=== PATIENT | female | born 1985 | race American Indian/Alaskan Native ===

== ENCOUNTER 2017-03-16 23:42 | Emergency (ER) | payer MEDICAID ==
[2017-03-16 23:42] VITALS: BMI 41.5
[2017-03-16 23:47] VITALS: RESP 20; TEMP 97.6
[2017-03-17] MEDS ORDERED: Oxycodone/Acetaminophen 5/325 mg Tab ONE (01:19)
--- NOTE | 2017-03-17 01:24 | C.PDOC ---
History Of Present Illness Patient is a 31 year old female who presents to the ER with a complaint of left shoulder pain after falling and hitting herself on a table. Patient states she has pain with movement and denies any LOC or any other injury. Time Seen by Provider: 03/17/17 00:21 Chief Complaint (Nursing): Upper Extremity Problem/Injury History Per: Patient History/Exam Limitations: no limitations Onset/Duration Of Symptoms: Hrs Current Symptoms Are (Timing): Still Present Exacerbating Factor(s): Movement Recent travel outside of the [place]: No Past Medical History Reviewed: Historical Data, Nursing Documentation, Vital Signs Vital Signs: Last Vital Signs Temp 97.6 F 03/16/17 23:43 Pulse 68 03/17/17 01:46 Resp 20 03/17/17 01:46 BP 127/69 03/17/17 01:46 Pulse Ox 98 03/17/17 03:06 - Medical History PMH: Anxiety Surgical History: Cholecystectomy - [facility] Procedures OTHER SKIN & SUBQ I D (05/08/14) Family History: States: Unknown Family Hx - Social History Hx Tobacco Use: No Hx Alcohol Use: No Hx Substance Use: No - Immunization History Hx Tetanus Toxoid Vaccination: No Hx Influenza Vaccination: No Hx Pneumococcal Vaccination: No Review Of Systems Musculoskeletal: Positive for: Shoulder Pain (Left). Negative for: Neck Pain, Back Pain Physical Exam - Physical Exam Appears: Well, Non-toxic Skin: Normal Color, Warm, Dry Head: Atraumatic, Normacephalic Eye(s): bilateral: Normal Inspection, PERRL Oral Mucosa: Moist Extremity: Normal ROM (Minimal pain with movement), No Tenderness (anterior left shoulder), No Capillary Refill, No Deformity, No Swelling, No Other ( Ecchymosis) Extremity: Bilateral: Normal Color And Temperature Pulses: Left Radial: Normal, Right Radial: Normal Neurological/Psych: Oriented x3, Normal Speech, Normal Cognition, Normal Motor, Normal Sensation Gait: Steady ED Course And Treatment O2 Sat by Pulse Oximetry: 98 (Room air) Pulse Ox Interpretation: Normal Progress Note: Left shoulder x-ray ordered, results showed no abnormalities. Patient refused motrin and requested percocet, 1 percocet administered. Patient' s shoulder placed in sling for support, instructed to follow up with PMD. Disposition Counseled Patient/Family Regarding: Diagnosis, Need For Followup, Rx Given - Disposition Referrals: Luis,Camilo L, MD [Medical Doctor] - Disposition: HOME/ ROUTINE Disposition Time: 01:20 Condition: STABLE Additional Instructions: Please follow up with PMD Take meds as directed Return to ER if worse Instructions: Shoulder Sprain (ED) - Clinical Impression Clinical Impression: Shoulder sprain - Scribe Statement The provider has reviewed the documentation as recorded by the Scribe Elder Gonzalez All medical record entries made by the Rachelibelizabeth were at my direction and personally dictated by me. I have reviewed the chart and agree that the record accurately reflects my personal performance of the history, physical exam, medical decision making, and the department course for this patient. I have also personally directed, reviewed, and agree with the discharge instructions and disposition.
[2017-03-17] MEDS ORDERED: Oxycodone/Acetaminophen 5/325 mg Tab PO STA (01:41)
[2017-03-17 01:48] VITALS: BP 127/69; PULSE 68
[2017-03-17 03:03] VITALS: O2SAT 98
--- NOTE | 2017-03-17 08:29 | RAD ---
PROCEDURE: Radiographs of the Left Shoulder HISTORY: pain COMPARISON: None available. FINDINGS: BONES: No acute displaced fracture. The distal clavicle and underlying ribs appear intact. JOINTS: No acute dislocation. SOFT TISSUES: Soft tissues appear unremarkable. No evidence of radiopaque foreign body. IMPRESSION: No acute displaced fracture or dislocation evident. If symptoms persist or if there is continued clinical concern, x-ray follow-up in 7-10 days should be considered.
== END 2017-03-17 01:46 | disposition home or self-care (01) ==
LOC: C.ER 23:42
DX: S43.402A Unspecified sprain of left shoulder joint, initial encounter (principal); W18.39XA Other fall on same level, initial encounter

== ENCOUNTER 2017-04-24 09:57 | Emergency (ER) | payer MEDICAID ==
[2017-04-24 09:57] VITALS: BMI 41.5
--- NOTE | 2017-04-24 10:14 | C.PDOC ---
History Of Present Illness 31 y/o female presents to ED with complaints of "sharp" chest pain, abdominal pain for "1 week or so" and nasal congestion. Chest pain is constant and also "comes and goes" with worsening when lying down or sitting up. Patient describes abdominal pain as "bloating" worse in the upper abdominal area. Patient denies urinary sympt, fever, chills, N/V/D, Diaphoresis SOB cough or rash Time Seen by Provider: 04/24/17 10:12 Chief Complaint (Nursing): Chest Pain History Per: Patient History/Exam Limitations: no limitations Onset/Duration Of Symptoms: Days Current Symptoms Are (Timing): Still Present Quality: Sharp Associated Symptoms: denies: Diaphoresis Past Medical History Reviewed: Historical Data, Nursing Documentation, Vital Signs Vital Signs: Last Vital Signs Temp 97.5 F L 04/24/17 15:11 Pulse 74 04/24/17 15:11 Resp 16 04/24/17 15:11 BP 109/71 04/24/17 15:11 Pulse Ox 100 04/24/17 15:16 - Medical History PMH: Anxiety Surgical History: Cholecystectomy - [facility] Procedures OTHER SKIN & SUBQ I D (05/08/14) Family History: States: Unknown Family Hx - Social History Hx Tobacco Use: No Hx Alcohol Use: No Hx Substance Use: No Review Of Systems Constitutional: Negative for: Fever, Chills Cardiovascular: Negative for: Chest Pain Gastrointestinal: Negative for: Nausea, Vomiting, Diarrhea Neurological: Negative for: Weakness, Headache Physical Exam - Physical Exam Appears: Non-toxic, No Acute Distress Skin: Normal Color, Warm Head: Atraumatic, Normacephalic Oral Mucosa: Moist Throat: Normal Chest: Tenderness (Diffuse anterior wall Tenderness) Cardiovascular: Rhythm Regular Respiratory: No Rales, No Rhonchi, No Wheezing Gastrointestinal/Abdominal: Soft, Tenderness (Moderate Epigastric and RUQ Tenderness, Mild RLQ Tenderness), No Guarding, No Rebound Back: No CVA Tenderness Extremity: Normal ROM Neurological/Psych: Oriented x3, Normal Speech, Normal Cognition ED Course And Treatment - Laboratory Results Result Diagrams: 04/24/17 11:07 04/24/17 11:07 ECG Rhythm: Sinus Rhythm ECG Interpretation: Abnormal Interpretation Of ECG: Normal Sinus rhythm. Nonspecific ST abnormality. Abnormal ECG Rate From EC O2 Sat by Pulse Oximetry: 100 (RA) Pulse Ox Interpretation: Normal - Radiology CXR: Interpreted by Me CXR Interpretation: Yes: No Acute Disease - CT Scan/US ab/pev Other Rad Studies (CT/US): Radiology Report Reviewed CT/US Interpretation: small ovarian cyst otherwise normal Medical Decision Making Medical Decision Making: Pt stable in the ed Abd continued soft with min tenderness no indication of acs pe ap Unremarkable labs and CT discussed with pt PLAN dc home pain meds pcp f/u Disposition Counseled Patient/Family Regarding: Diagnosis, Need For Followup - Disposition Referrals: Camilo Luis MD [Medical Doctor] - Disposition: HOME/ ROUTINE Disposition Time: 15:11 Condition: GOOD Prescriptions: Atropine/Hyoscyamine [] 1 tab PO TID PRN #20 tab PRN Reason: .abd pain Famotidine [Pepcid] 1 tab PO BID #30 tab oxyCODONE/Acetaminophen [Percocet 5/325 mg Tab] 1 tab PO Q4H PRN #12 tab PRN Reason: .severe pain Instructions: Chest Pain (ED), Acute Abdominal Pain (DC) - Clinical Impression Clinical Impression: Chest pain, Abdominal pain - 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 MD/DO has examined the patient and agrees with the treatment plan. - Scribe Statement The provider has reviewed the documentation as recorded by the Jennifer Pastrana All medical record entries made by the Jennifer were at my direction and personally dictated by me. I have reviewed the chart and agree that the record accurately reflects my personal performance of the history, physical exam, medical decision making, and the department course for this patient. I have also personally directed, reviewed, and agree with the discharge instructions and disposition.
[2017-04-24] MEDS ORDERED: Iohexol 240 (50 ml) PO ONE (11:11)
[2017-04-24] MEDS ORDERED: Iohexol 240 (50 ml) ONE (11:17)
[2017-04-24 11:24] LABS: BASO % 0.8 % (0.0-2.0); EOS # 0.1 K/uL (0.0-0.7); LYMPH # 1.9 K/uL (1.0-4.3); LYMPH % 47.2 % (20.0-40.0); MEAN CELL VOLUME 91.4 fL (81.0-99.0); MEAN CORPUSCULAR HEMOGLOBIN 30.4 pg (27.0-31.0); MEAN CORPUSCULAR HGB CONC 33.2 g/dL (33.0-37.0); MEAN PLATELET VOLUME 8.3 fL (7.2-11.7); MONO # 0.5 K/uL (0.0-0.8); MONO % 11.6 % (0.0-10.0); NRBC % 0.1 % (0.0-2.0); RED CELL DISTRIBUTION WIDTH 13.7 % (11.5-14.5)
[2017-04-24 11:29] LABS: CHLORIDE 100 mmol/L (98-107); SODIUM 136 mmol/L (132-148)
[2017-04-24 11:30] LABS: POTASSIUM 4.1 mmol/L (3.6-5.2)
[2017-04-24 11:32] LABS: ALB/GLOB RATIO 1.4 (1.0-2.1); ALKALINE PHOSPHATASE 51 U/L (38-126); ALT/SGPT 17 U/L (9-52); AST/SGOT 21 U/L (14-36); BILIRUBIN,TOTAL 0.7 mg/dL (0.2-1.3); BLOOD UREA NITROGEN 10 mg/dL (7-17); CARBON DIOXIDE 29 mmol/L (22-30); GFR AFRICAN-AMERICAN > 60; GLUCOSE,RANDOM 77 mg/dL (65-105); TOTAL PROTEIN 6.8 g/dL (6.3-8.3)
[2017-04-24 11:33] LABS: CALCIUM 8.4 mg/dl (8.6-10.4)
[2017-04-24 13:02] VITALS: TEMP 97.5
[2017-04-24] MEDS ORDERED: Morphine 4 MG/ML VIAL ONE (13:04)
[2017-04-24] MEDS ORDERED: Iodixanol 320 MG/ML 100 ML BOTTLE IV ONE (13:15)
--- NOTE | 2017-04-24 13:47 | CT ---
PROCEDURE: CT Abdomen and Pelvis with oral and IV contrast. HISTORY: Abd Pain COMPARISON: None available TECHNIQUE: Contiguous axial images of the abdomen and pelvis. Oral and IV contrast was administered. Coronal and Sagittal reformats generated and reviewed. Contrast dose: 100 cc Visipaque 320 Radiation dose: Total exam DLP = 709.01 mGy-cm. This CT exam was performed using one or more of the following dose reduction techniques: Automated exposure control, adjustment of the mA and/or kV according to patient size, and/or use of iterative reconstruction technique. FINDINGS: LOWER THORAX: No visible consolidation, pleural effusion, or pneumothorax. LIVER: 4 mm and 3 mm hepatic hypodensities, too small to characterize ; statistically likely a cyst or hemangioma. Hypoattenuation of the liver compatible with hepatic steatosis. GALLBLADDER AND BILE DUCTS: Unremarkable. PANCREAS: Unremarkable. SPLEEN: Unremarkable. ADRENALS: Unremarkable. KIDNEYS AND URETERS: The kidneys enhance symmetrically. No hydronephrosis or obstructing renal calculus. BLADDER: The urinary bladder appears unremarkable. REPRODUCTIVE: Uterus is present. IUD. Suspect 15 mm right ovarian cyst. APPENDIX: The presumed appendix appears within normal limits of caliber. No secondary signs of acute appendicitis. BOWEL: The stomach is nondistended. The bowel loops appear within normal limits of caliber without evidence of intestinal obstruction. PERITONEUM: No significant free fluid. No definite free air. LYMPH NODES: No bulky lymphadenopathy identified. VASCULATURE: No aortic aneurysm. BONES: No acute osseous abnormality is detected. OTHER FINDINGS: None. IMPRESSION: 4 mm and 3 mm hepatic hypodensities, too small to characterize ; statistically likely cysts or hemangiomas. Hepatic steatosis. Suspect 15 mm right ovarian cyst. IUD.
--- NOTE | 2017-04-24 14:28 | RAD ---
HISTORY: CP COMPARISON: Chest x-ray performed 02/04/16 TECHNIQUE: Chest, one view. FINDINGS: LUNGS: No focal consolidation. Please note that chest x-ray has limited sensitivity for the detection of pulmonary masses. PLEURA: No significant pleural effusion identified. No definite pneumothorax . CARDIOVASCULAR: The cardiomediastinal silhouette appears within normal limits of size. OSSEOUS STRUCTURES: No acute osseous abnormality identified. VISUALIZED UPPER ABDOMEN: Unremarkable. OTHER FINDINGS: None. IMPRESSION: No focal consolidation, significant pleural effusion, or definite pneumothorax identified.
[2017-04-24 15:12] VITALS: BP 109/71; PULSE 74; RESP 16
[2017-04-24 15:13] VITALS: O2SAT 100
== END 2017-04-24 15:39 | disposition home or self-care (01) ==
LOC: C.ER 09:57
DX: R07.89 Other chest pain (principal); R10.10 Upper abdominal pain, unspecified
CPT/HCPCS: 71010; 74177; 80053; 83690; 84484; 84703; 85025; 87086; 94770; 96374; 96375; 99285; J1885; J2270; J2405; Q9966; Q9967

== ENCOUNTER 2017-04-25 15:45 | Emergency (ER) | payer MEDICAID ==
[2017-04-25 15:55] VITALS: BMI 33.5
[2017-04-25 15:59] VITALS: BP 117/76; PULSE 68; RESP 18; TEMP 98.1; O2SAT 100
--- NOTE | 2017-04-25 16:22 | C.PDOC ---
History Of Present Illness 31 y/o female presents to ED with complaint of epigastric abdominal pain. Patient was evaluated for the same complaint yesterday, with negative CT scan, x -ray, and workup, and was discharged with prescription for . Patient states unable to fill the prescription due to insurance/money issues. She reports 3 episodes of diarrhea and vomiting since yesterday. Otherwise, denies fever, chills, urinary symptoms, or other complaints. Time Seen by Provider: 04/25/17 16:07 Chief Complaint (Nursing): Abdominal Pain History Per: Patient History/Exam Limitations: no limitations Onset/Duration Of Symptoms: Days Current Symptoms Are (Timing): Still Present Location Of Pain/Discomfort: Epigastric Radiation Of Pain To:: None Quality Of Discomfort: "Pain" Associated Symptoms: Vomiting, Diarrhea. denies: Fever, Chills, Back Pain, Constipation, Urinary Symptoms Recent travel outside of the [place]: No Past Medical History Reviewed: Historical Data, Nursing Documentation, Vital Signs Vital Signs: Last Vital Signs Temp 98.1 F 04/25/17 15:55 Pulse 68 04/25/17 15:55 Resp 18 04/25/17 15:55 BP 117/76 04/25/17 15:55 Pulse Ox 100 04/25/17 16:35 - Medical History PMH: Anxiety Surgical History: Cholecystectomy - [facility] Procedures OTHER SKIN & SUBQ I D (05/08/14) Family History: States: Unknown Family Hx - Social History Hx Tobacco Use: No Hx Alcohol Use: No Hx Substance Use: No - Immunization History Hx Tetanus Toxoid Vaccination: No Hx Influenza Vaccination: No Hx Pneumococcal Vaccination: No Review Of Systems Except As Marked, All Systems Reviewed And Found Negative. Constitutional: Negative for: Fever, Chills Cardiovascular: Negative for: Chest Pain Respiratory: Negative for: Cough, Shortness of Breath Gastrointestinal: Positive for: Vomiting, Abdominal Pain, Diarrhea Genitourinary: Negative for: Dysuria Skin: Negative for: Rash Neurological: Negative for: Dizziness Physical Exam - Physical Exam Appears: Non-toxic, No Acute Distress Skin: Normal Color, Warm, Dry Head: Atraumatic, Normacephalic Oral Mucosa: Moist Chest: Symmetrical Cardiovascular: Rhythm Regular Respiratory: Normal Breath Sounds, No Rales, No Rhonchi, No Wheezing Gastrointestinal/Abdominal: Soft, Tenderness (epigastric), No Distention, No Guarding, No Rebound Back: Normal Inspection Extremity: Normal ROM, Capillary Refill (< 2 sec. ) Neurological/Psych: Oriented x3, Normal Speech, Normal Cognition Gait: Steady ED Course And Treatment O2 Sat by Pulse Oximetry: 100 (RA) Pulse Ox Interpretation: Normal Progress Note: Patient requested different medication because to expensive. Patient refused any further treatment. Rx to pharmacy In no distress Reassessment Condition: Unchanged Disposition Counseled Patient/Family Regarding: Need For Followup, Rx Given - Disposition Referrals: Paulie Gan MD [Staff Provider] - Disposition: HOME/ ROUTINE Disposition Time: 17:00 Condition: STABLE Additional Instructions: Follow up with PMD and GI for further evaluation Prescriptions: Esomeprazole Magnesium [Nexium 24Hr] 20 mg PO DAILY #20 tablet. 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 - Scribe Statement The provider has reviewed the documentation as recorded by the Jennifer Cross All medical record entries made by the Jennifer were at my direction and personally dictated by me. I have reviewed the chart and agree that the record accurately reflects my personal performance of the history, physical exam, medical decision making, and the department course for this patient. I have also personally directed, reviewed, and agree with the discharge instructions and disposition.
[2017-04-25] MEDS ORDERED: Aluminum Hydroxide/Magnesium Hydroxide Susp (30 mL) ONE (16:36)
[2017-04-25] MEDS: Alum-Mag Hydrox-Simethicone Susp (30 mL) PO STA (16:40)
== END 2017-04-25 16:45 | disposition home or self-care (01) ==
LOC: C.ER 15:45
DX: K52.9 Noninfective gastroenteritis and colitis, unspecified (principal)

== ENCOUNTER 2018-05-30 09:34 | Emergency (ER) | payer MEDICAID ==
[2018-05-30 09:35] VITALS: BMI 30.7
[2018-05-30 09:51] VITALS: BP 140/91; PULSE 97; RESP 18; TEMP 99; O2SAT 100
--- NOTE | 2018-05-30 09:53 | C.PDOC ---
History Of Present Illness Patient is a 32 y/o F presenting with 2 day history of sore throat. She reports that she had a mild sore throat yesterday but today her symptoms worsened so she presented to ED. Reports gargling with salt water and taking motrin without relief. Reports subjective fever. Denies cough. Denies chest pain or shortness of breath. Reports pain with swallowing but no difficulty swallowing or change in voice. Patient reports that she was recently tested for gonorrhea and chlamydia due to partner's symptoms and was positive for chlamydia and was given 1000mg azithromycin yesterday. Reports gonorrhea test was negative. Time Seen by Provider: 05/30/18 09:44 Past Medical History Vital Signs: Last Vital Signs Temp 99 F 05/30/18 09:48 Pulse 97 H 05/30/18 09:48 Resp 18 05/30/18 09:48 BP 140/91 H 05/30/18 09:48 Pulse Ox 100 05/30/18 09:48 - Medical History PMH: Anxiety, Asthma, Back Problems, Fibromyalgia, Post Traumatic Stress Disorder Denies: Depression Surgical History: Cholecystectomy - [facility] Procedures OTHER SKIN & SUBQ I D (05/08/14) Family History: States: Unknown Family Hx - Social History Hx Tobacco Use: No Hx Alcohol Use: No Hx Substance Use: No - Immunization History Hx Tetanus Toxoid Vaccination: No Hx Influenza Vaccination: No Hx Pneumococcal Vaccination: No Review Of Systems Constitutional: Positive for: Fever (subjective) Eyes: Negative for: Pain, Vision Change ENT: Positive for: Throat Pain. Negative for: Ear Pain, Ear Discharge, Nose Pain, Nose Discharge, Nose Congestion, Throat Swelling Cardiovascular: Negative for: Chest Pain, Palpitations Respiratory: Negative for: Cough, Shortness of Breath, Hemoptysis, SOB with Excertion, Wheezing Gastrointestinal: Negative for: Nausea, Vomiting, Abdominal Pain, Diarrhea, Constipation Musculoskeletal: Negative for: Neck Pain Skin: Negative for: Rash Physical Exam - Physical Exam Appears: Well, Non-toxic, Other (phonating normally) Skin: Normal Color, Warm, Dry Head: Atraumatic, Normacephalic Eye(s): bilateral: Normal Inspection, PERRL, EOMI Ear(s): Left: Normal, Right: TM Obscured By Wax (patient aware) Nose: Normal Oral Mucosa: Moist Tongue: Normal Appearing Lips: Normal Appearing Teeth: Normal Dentition Gingiva: Normal Appearing Throat: Erythema, Exudate, No Drooling Neck: Normal ROM, Supple Lymphatic: Other (tender cervical LAD) Extremity: Normal ROM Neurological/Psych: Oriented x3, Normal Speech, Normal Cranial Nerves Gait: Steady Medical Decision Making Medical Decision Making: Based on centor criteria: 3, rapid strep ordered. Given decadron and toradol for pain. Strep engative but due to symptoms will treat Disposition - Disposition Disposition: HOME/ ROUTINE Disposition Time: 10:35 Condition: GOOD Additional Instructions: Follow-up with PMD within 2 days. Return to ED if condition worsens. Motrin for pain Instructions: Sore Throat, Adult (DC), Viral Pharyngitis - Clinical Impression Clinical Impression: Pharyngitis
[2018-05-30] MEDS ORDERED: Penicillin G Benzathine 1.2 Mill Unit/2 ml Syr IM ONE ×2 (10:34→10:43)
== END 2018-05-30 10:45 | disposition home or self-care (01) ==
LOC: C.ER 09:34
DX: J02.9 Acute pharyngitis, unspecified (principal)
CPT/HCPCS: 87070; 87430; 96372; 99282; J0561; J1885; J8540

== ENCOUNTER 2018-10-28 22:30 | Emergency (ER) | payer MEDICAID ==
[2018-10-28 22:30] VITALS: BMI 30.7
[2018-10-28 22:45] VITALS: PULSE 86; RESP 20; TEMP 98; O2SAT 98
[2018-10-28] MEDS ORDERED: Amoxicillin-Clav 875-125 mg Tab PO STA (23:37)
[2018-10-28] MEDS ORDERED: Amoxicillin-Clav 875-125 mg Tab PO ONE (23:42)
--- NOTE | 2018-10-29 00:05 | C.PDOC ---
History Of Present Illness 33 year old female presents to the ER with a complaint of cough and runny nose for the past week, now associated with pain to the left facial area and tingling to the tongue. Denies fever, weakness, numbness, chest pain, and SOB. Time Seen by Provider: 10/28/18 23:00 Chief Complaint (Nursing): Cough, Cold, Congestion History Per: Patient History/Exam Limitations: no limitations Onset/Duration Of Symptoms: Days Current Symptoms Are (Timing): Still Present Location Of Pain: Sinus/es Sick Contacts (Context): None Associated Symptoms: Cough, Sinus Drainage, Other (Facial pain, Tingling to tongue) Ear Symptoms: Bilateral: None Recent travel outside of the [place]: No Past Medical History Reviewed: Historical Data, Nursing Documentation, Vital Signs Vital Signs: Last Vital Signs Temp 98 F 10/28/18 22:41 Pulse 86 10/28/18 22:41 Resp 20 10/28/18 22:41 BP Pulse Ox 98 10/28/18 22:41 - Medical History PMH: Anxiety, Asthma, Back Problems, Fibromyalgia, Post Traumatic Stress Disorder Denies: Depression Surgical History: Cholecystectomy - [facility] Procedures OTHER SKIN & SUBQ I D (05/08/14) Family History: States: Unknown Family Hx - Social History Hx Tobacco Use: No Hx Alcohol Use: No Hx Substance Use: No - Immunization History Hx Tetanus Toxoid Vaccination: No Hx Influenza Vaccination: No Hx Pneumococcal Vaccination: No Review Of Systems Constitutional: Negative for: Fever, Chills ENT: Positive for: Nose Discharge, Other (Tingling to tongue) Cardiovascular: Negative for: Chest Pain Respiratory: Positive for: Cough. Negative for: Shortness of Breath Musculoskeletal: Positive for: Other (Left sided facial pain) Neurological: Negative for: Weakness, Numbness Physical Exam - Physical Exam Appears: Non-toxic Skin: Normal Color, Warm, Dry, No Rash Head: Atraumatic, Normacephalic, Tenderness (Moderate to left maxillary sinus) Eye(s): bilateral: Normal Inspection, PERRL, EOMI Ear(s): Bilateral: Normal Nose: Normal Oral Mucosa: Moist Throat: Normal, No Erythema, No Exudate Neck: Normal, Supple Lymphatic: Adenopathy (Left anterior cervical) Chest: Symmetrical, No Tenderness Cardiovascular: Rhythm Regular, No Friction Rub, No Murmur Respiratory: Normal Breath Sounds, No Rales, No Rhonchi, No Wheezing Gastrointestinal/Abdominal: Soft, No Tenderness Extremity: Normal ROM, No Swelling Neurological/Psych: Oriented x3, Normal Speech ED Course And Treatment O2 Sat by Pulse Oximetry: 98 (room air) Pulse Ox Interpretation: Normal Medical Decision Making Medical Decision Making: Motrin administered. Patient is resting comfortably in the ER in no acute distress, afebrile, will start on augmentin and discharge home with Rx and instructions to follow up with PMD. Disposition - Disposition Referrals: Darren Baez MD [Staff Provider] - Disposition: HOME/ ROUTINE Disposition Time: 00:06 Condition: STABLE Additional Instructions: Follow up with the Jig And Fixture Repairer within 1-2 days. Return if worsened. Take the nasal spray everyday even if you are feeling better. 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 - Scribe Statement The provider has reviewed the documentation as recorded by the Scribe Elder Gonzalez All medical record entries made by the Scribe were at my direction and personally dictated by me. I have reviewed the chart and agree that the record accurately reflects my personal performance of the history, physical exam, medical decision making, and the department course for this patient. I have also personally directed, reviewed, and agree with the discharge instructions and disposition.
== END 2018-10-29 00:19 | disposition home or self-care (01) ==
LOC: C.ER 22:30
DX: J32.9 Chronic sinusitis, unspecified (principal)

== ENCOUNTER 2018-12-10 14:34 | Emergency (ER) | payer MEDICAID ==
[2018-12-10 14:34] VITALS: BMI 30.7
[2018-12-10 14:45] VITALS: RESP 18; O2SAT 100
--- NOTE | 2018-12-10 15:07 | C.PDOC ---
History Of Present Illness 33 y/o female presents complaining of cough since 12/07/18. She states initially she had a sore throat and took otc cold medicine and home remedies without any improvement. The next day she developed a cough that was initially dry but has become productive with one episode of mild hemoptysis. She admits to chest pain after severe coughing bouts and SOB (lasting for only a few seconds). She denies fever, chills, headache, wheezing, N/V, recent travel, and sick contacts. She admits to seasonal allergies and takes OTC antihistamines. She also complains of pain of the left hip, left rib cage, and left arm s/p fall yesterday. She states she slipped and fell on black ice. She doesn't note any bruises but has localized pain rating it a 6/10. She is able to ambulate. She denies any paresthesias, LOC, weakness, and headache. She states she placed ice on the extremities and took Motrin. Time Seen by Provider: 12/10/18 15:30 Chief Complaint (Nursing): Flu-like Symptoms History Per: Patient History/Exam Limitations: no limitations Onset/Duration Of Symptoms: Gradual Current Symptoms Are (Timing): Still Present Location Of Pain: Throat, Headache Sick Contacts (Context): None Associated Symptoms: Sore Throat, Cough, Sputum, Myalgias. denies: Fever, Chills, Neck Pain, Sinus Drainage, Nasal Congestion, Nausea, Vomiting, Diarrhea Severity: Moderate Pain Scale Rating Of: 6 Recent travel outside of the [place]: No Past Medical History Reviewed: Historical Data, Nursing Documentation, Vital Signs Vital Signs: Last Vital Signs Temp 98.4 F 12/10/18 14:42 Pulse 96 H 12/10/18 14:42 Resp 18 12/10/18 14:42 BP 119/78 12/10/18 14:42 Pulse Ox 100 12/10/18 14:42 - Medical History PMH: Anxiety, Asthma, Back Problems, Fibromyalgia, Post Traumatic Stress Disorder Denies: Depression Surgical History: No Surg Hx - [facility] Procedures OTHER SKIN & SUBQ I D (05/08/14) Family History: States: Diabetes, Hypertension - Social History Hx Tobacco Use: No Hx Alcohol Use: No Hx Substance Use: No - Immunization History Hx Tetanus Toxoid Vaccination: No Hx Influenza Vaccination: No Hx Pneumococcal Vaccination: No Review Of Systems Except As Marked, All Systems Reviewed And Found Negative. Constitutional: Negative for: Fever, Chills, Sweats, Weakness Eyes: Negative for: Pain ENT: Positive for: Throat Pain. Negative for: Ear Pain, Nose Discharge, Nose Congestion Cardiovascular: Positive for: Chest Pain (with cough). Negative for: Palpitations Respiratory: Positive for: Cough (productive), Hemoptysis (mild per patient ). Negative for: Shortness of Breath Gastrointestinal: Negative for: Nausea, Vomiting, Abdominal Pain, Diarrhea Genitourinary: Negative for: Dysuria, Frequency Musculoskeletal: Positive for: Arm Pain (left side s/p fall), Other (hip and left rib pain s/p fall). Negative for: Neck Pain Skin: Negative for: Rash, Bruising Neurological: Negative for: Weakness, Numbness, Headache, Dizziness Psych: Positive for: Anxiety Physical Exam - Physical Exam Appears: Well, Non-toxic, No Acute Distress Skin: Normal Color, Warm, Dry, No Ecchymosis Head: Atraumatic, Normacephalic, No Tenderness Eye(s): bilateral: Normal Inspection, PERRL Ear(s): Bilateral: Normal, TM Obscured By Wax Nose: Normal, No Discharge Throat: Erythema, Other (1+ tonsils bilaterally ) Neck: Normal, Normal ROM, Supple Lymphatic: No Adenopathy Cardiovascular: Rhythm Regular Respiratory: No Wheezing, Other (crackles) Gastrointestinal/Abdominal: Bowel Sounds, Soft, No Tenderness Back: No CVA Tenderness Extremity: Normal ROM (of left arm), Tenderness (upon palpation of 5th rib and left hip), Capillary Refill (less than 2 seconds) Extremity: Left: [place] Tenderness (hip) Pulses: Left Brachial: Normal, Left Radial: Normal, Left Femoral: Normal Neurological/Psych: Oriented x3, Normal Speech, Normal Cognition, Normal Se nsation Gait: Steady ED Course And Treatment O2 Sat by Pulse Oximetry: 100 - Other Rad Left Hip X-ray X-Ray: Read By Radiologist Interpretation: Accession No. : [id number]. Patient Name / ID : MAXIMO VASQUEZ / [id number]. Exam Date : 12/10/2018 16:54:48 ( Approved ). Study Comment : Sex / Age : F / 33Y. Creator : Escobar Roman MD. Dictator : Escobar Roman MD. Certified Pharmacy Technician : Wire Wrapper Machine Operator : Escobar Roman MD. Approver2 : Report Date : 12/10/2018 17:44:38. My Comment : . PROCEDURE: Left Hip X-ray Radiographs. HISTORY: s/p fall. COMPARISON: None. FINDINGS: BONES: No fracture. Small proliferative changes near both acetabula. JOINTS: Normal. SOFT TISSUES: Normal. OTHER FINDINGS: Intrauterine device in place. IMPRESSION: No acute fracture. Left Rib and Chest X-RAY X-Ray: Read By Radiologist Interpretation: Accession No. : [id number]. Patient Name / ID : MAXIMO VASQUEZ / [id number]. Exam Date : 12/10/2018 16:46:58 ( Approved ). Study Comment : Sex / Age : F / 33Y. Creator : Rebeca Ceja MD. Dictator : Rebeca Ceja MD. Certified Pharmacy Technician : Wire Wrapper Machine Operator : Rebcea Ceja MD. Approver2 : Report Date : 12/10/2018 17:39:13. My Comment : . Date of service: 12/10/2018. PROCEDURE: Radiographs of the Chest and Left Ribs. HISTORY: fall with rib injury/ cough. COMPARISON: Chest x-ray performed 04/24/17. TECHNIQUE: Frontal radiograph of the chest and multiple oblique radiographs of the left ribs were obtained. FINDINGS: LEFT RIBS: No acute displaced fracture identified. LUNGS: No focal consolidation. PLEURA: No significant pleural effusion. No definite pneumothorax. CARDIOVASCULAR: Heart size appears within normal limits. No pulmonary vascular congestion. No aortic atherosclerotic calcification present. OTHER FINDINGS: Bilateral nipple rings. IMPRESSION: Unremarkable radiographs of the chest and left ribs. No appreciable displaced left rib fracture. Progress Note: 4:00pm Patient started on Duoneb and given Toradol 30mg IM. 4:20pm Patient awaiting Rib and Hip/Pelvis Xray. 5:13pm Xray completed; awaiting results but looks grossly normal. 5:30pm Patient stable and discharged Reassessment Condition: Improved Disposition Counseled Patient/Family Regarding: Studies Performed, Diagnosis, Need For Followup, Rx Given - Disposition Referrals: Massimo Pérez, JADE, APPLICATION PACKAGING CONSULTANT [Advanced Practice Nurse] - Disposition: HOME/ ROUTINE Disposition Time: 17:16 Condition: IMPROVED Additional Instructions: CHRISTINA MARSH, thank you for letting us take care of you today. Your provider was Jarret Torres/ Olga Stoner PA-C and you were treated for COUGHING/LT SIDE PAIN. The emergency medical care you received today was directed at your acute symptoms. If you were prescribed any medication, please fill it and take as directed. Motrin 600mg PO TID PRN for Left sided PAIN Zpac use as directed Medrol Dose pack use as directed Proair 2 puffs q4-6hrs for cough/ SOB It may take several days for your symptoms to resolve. Return to the Emergency Department if your symptoms worsen, do not improve, or if you have any other problems. Please contact your doctor or call one of the physicians/clinics you have been referred to that are listed on the Patient Visit Information form that is included in your discharge packet. Bring any paperwork you were given at discharge with you along with any medications you are taking to your follow up visit. Our treatment cannot replace ongoing medical care by a primary care provider outside of the emergency department. Thank you for allowing the [facility] team to be part of your care today. If you had an X-Ray or CT scan: A Radiologist will review the ED reading if any change in treatment is needed we will contact you. If you had a blood, urine, or wound culture: It will take several days for the results, if any change in treatment is needed we will contact you. If you had an STI test: It will take 48 hours for the results. Please call after 1 week if you have not heard back. Prescriptions: Albuterol Sulfate [Proair Hfa] 2 puff IH Q6 PRN #1 inh PRN Reason: Cough Azithromycin [Zithromax] 250 mg PO DAILY #6 tab Benzonatate 200 mg PO TID PRN #30 capsule PRN Reason: Cough Methylprednisolone [Medrol Dose Pack (21 tabs)] 4 mg PO DAILY #21 mg Instructions: Acute Bronchitis, Adult (DC), Bruised Rib (DC) Forms: [employer] ([place]i) - Clinical Impression Clinical Impression: Acute bronchitis, Rib injury, Hip injury - PA / INTERNATIONAL FLIGHT ATTENDANT / Resident Statement MD/DO has reviewed & agrees with the documentation as recorded.
[2018-12-10] MEDS ORDERED: Albuterol-Ipratrop 3 mg / 0.5 (3 ml) UD INH STA (15:25)
[2018-12-10 17:10] VITALS: BP 130/77; PULSE 74; TEMP 98.5
--- NOTE | 2018-12-10 17:42 | RAD ---
Date of service: 12/10/2018 PROCEDURE: Radiographs of the Chest and Left Ribs. HISTORY: fall with rib injury/ cough COMPARISON: Chest x-ray performed 04/24/17 TECHNIQUE: Frontal radiograph of the chest and multiple oblique radiographs of the left ribs were obtained. FINDINGS: LEFT RIBS: No acute displaced fracture identified. LUNGS: No focal consolidation. PLEURA: No significant pleural effusion. No definite pneumothorax. CARDIOVASCULAR: Heart size appears within normal limits. No pulmonary vascular congestion. No aortic atherosclerotic calcification present OTHER FINDINGS: Bilateral nipple rings. IMPRESSION: Unremarkable radiographs of the chest and left ribs. No appreciable displaced left rib fracture.
--- NOTE | 2018-12-10 17:48 | RAD ---
PROCEDURE: Left Hip X-ray Radiographs. HISTORY: s/p fall COMPARISON: None. FINDINGS: BONES: No fracture. Small proliferative changes near both acetabula. JOINTS: Normal. SOFT TISSUES: Normal. OTHER FINDINGS: Intrauterine device in place. IMPRESSION: No acute fracture.
== END 2018-12-10 17:41 | disposition home or self-care (01) ==
LOC: C.ER 14:34
DX: J20.9 Acute bronchitis, unspecified (principal); S29.9XXA Unspecified injury of thorax, initial encounter; S79.912A Unspecified injury of left hip, initial encounter; W00.0XXA Fall on same level due to ice and snow, initial encounter
CPT/HCPCS: 71101; 73502; 81025; 94640; 96372; 99284; J1885

== ENCOUNTER 2019-03-01 23:25 | Emergency (ER) | payer MEDICAID ==
[2019-03-01 23:27] VITALS: BMI 30.7
[2019-03-01 23:36] VITALS: BP 115/82; PULSE 94; RESP 18; TEMP 98.2; O2SAT 100
[2019-03-02] MEDS ORDERED: Tdap Vaccine 0.5 ml Vial (10-64 yrs) IM ONE (00:24)
[2019-03-02] MEDS ORDERED: Amoxicillin-Clav 875-125 mg Tab PO STA (00:25)
[2019-03-02] MEDS ORDERED: Bacitracin 500 Units/gm Oint Foilpak UD TOP ONE (00:27)
--- NOTE | 2019-03-02 00:27 | C.PDOC ---
History Of Present Illness 33 year old female presents to the emergency department after being bit on left thigh by neighbor's tia , dog's shots are utd, last tdap unk. Time Seen by Provider: 03/02/19 00:09 Chief Complaint (Nursing): Bite History/Exam Limitations: no limitations Onset/Duration Of Symptoms: Hrs Current Symptoms Are (Timing): Still Present Location Of Injury: Left: Thigh Quality Of Symptoms: Other (wound) - Animal Bite Description Of The Attack: Playing With Animal Description Of The Animal: Neighbor's Pet Reports Animal's Immunization Status: Other (Up to date, but last Tdap unknown) Past Medical History Vital Signs: Last Vital Signs Temp 98.2 F 03/01/19 23:32 Pulse 94 H 03/01/19 23:32 Resp 18 03/01/19 23:32 BP 115/82 03/01/19 23:32 Pulse Ox 100 03/01/19 23:32 - Medical History PMH: Anxiety, Asthma, Back Problems, Fibromyalgia, Post Traumatic Stress Disorder Denies: Depression Surgical History: Denies: Cholecystectomy - [facility] Procedures OTHER SKIN & SUBQ I D (05/08/14) Family History: States: Unknown Family Hx, Diabetes, Hypertension - Social History Hx Tobacco Use: No Hx Alcohol Use: No Hx Substance Use: No - Immunization History Hx Tetanus Toxoid Vaccination: No Hx Influenza Vaccination: No Hx Pneumococcal Vaccination: No Review Of Systems Musculoskeletal: Positive for: Leg Pain (left leg) Skin: Positive for: Other (bite wound to left thigh) Neurological: Negative for: Weakness, Numbness, Other Physical Exam - Physical Exam Appears: Non-toxic, No Acute Distress Skin: Warm, Dry Head: Normacephalic Neck: Supple Extremity: Normal ROM, No Tenderness, Other (1cm x .5cm shallow flap like laceration the left thigh, no active bleeding, mild surrounding burising) Pulses: Left Dorsalis Pedis: Normal Neurological/Psych: Oriented x3, Normal Speech, Normal Cognition ED Course And Treatment O2 Sat by Pulse Oximetry: 100 (RA) Pulse Ox Interpretation: Normal Medical Decision Making Medical Decision Making: Plan: Augmentin PO Bacitracin Toradol 30mg PO POC Urine Disposition Counseled Patient/Family Regarding: Diagnosis, Need For Followup, Rx Given - Disposition Referrals: Massimo Pérez, JADE, BOX SEALING MACHINE CATCHER [Primary Care Provider] - Disposition: HOME/ ROUTINE Disposition Time: 00:48 Condition: GOOD Additional Instructions: Keep area clean and dry. Take Motrin or Tylenol for pain . Take antibiotics until completed Return to ER for any signs of infection. . [facility]s sent to [facility]. [facility] Prescriptions: Acetaminophen [Tylenol 325mg tab] 650 mg PO Q6 #30 tab Amoxicillin/Clavulanate [Augmentin 875 MG-125 MG] 1 tab PO BID #14 tab Instructions: Animal Bites (DC) Forms: [employer] (Nepali), General Discharge Instructions - Clinical Impression Clinical Impression: Dog bite of left thigh - PA / BICYCLE REPAIRER / Resident Statement MD/DO has reviewed & agrees with the documentation as recorded. - Scribe Statement The provider has reviewed the documentation as recorded by the Scribe (Keo Ritchie) All medical record entries made by the Scribe were at my direction and personally dictated by me. I have reviewed the chart and agree that the record accurately reflects my personal performance of the history, physical exam, medical decision making, and the department course for this patient. I have also personally directed, reviewed, and agree with the discharge instructions and disposition.
[2019-03-02] MEDS ORDERED: Tetanus/Diphtheria Toxoids 0.5 ml Syringe IM ONE (00:32)
[2019-03-02] MEDS ORDERED: Amoxicillin-Clav 875-125 mg Tab PO ONE (00:32)
[2019-03-02] MEDS ORDERED: Bacitracin 500 Units/gm Oint Foilpak UD ONE (00:32)
== END 2019-03-02 00:54 | disposition home or self-care (01) ==
LOC: C.ER 23:25 → SUPCPDRO 23:25 → C.ER 03-02 00:54
DX: S71.152A Open bite, left thigh, initial encounter (principal); W54.0XXA Bitten by dog, initial encounter; Z23 Encounter for immunization; M79.7 Fibromyalgia; F43.10 Post-traumatic stress disorder, unspecified
CPT/HCPCS: 90471; 90715; 96372; 99283; J1885